=== PATIENT | male | born 1955 | race Native Hawaiian/Other Pacific Islander ===

== ENCOUNTER 2021-01-21 17:38 | Emergency (ER) | payer OTHER ==
[~2021-01-21] VITALS: Ht 188 cm; Wt 92.5 kg
[2021-01-21 17:38] VITALS: BP 127/72; TEMP 98.9
[2021-01-21 18:07] LABS: PLATELET COUNT 463 K/uL (142-355)
[2021-01-21 18:21] LABS: POTASSIUM 4.2 mmol/L (3.6-5.2)
[2021-01-21] MEDS ORDERED: FURO20TA67 PO (20:54)
[2021-01-21] MEDS ORDERED: AMLODIPINE BESYLATE PO (20:54)
[2021-01-21] MEDS ORDERED: ACID CONTROL MA20 MG PO (20:55)
[2021-01-21] MEDS ORDERED: CITALOPRAM40 M1 PO (20:55)
[2021-01-21] MEDS ORDERED: ELIQUIS5 MG PO (20:55)
[2021-01-21] MEDS ORDERED: METOPROLOL25 M1 PO (20:56)
[2021-01-21] MEDS ORDERED: VIMPAT100 MG PO (20:57)
[2021-01-21] MEDS ORDERED: SEROQUEL25 MG PO (20:57)
[2021-01-21] MEDS ORDERED: TYLENOL325 MG PO (20:58)
[2021-01-21] MEDS ORDERED: VALTOCO5 MG/0.1 M IM (20:59)
[2021-01-21] MEDS ORDERED: IPRAAER INH (21:00)
[2021-01-21] MEDS ORDERED: HYDR5TAB9 PO (21:00)
[2021-01-21] MEDS ORDERED: LORA0.5T17 PO (21:01)
[2021-01-21] MEDS ORDERED: ROWEEPRA XR750 MG PO (21:02)
== END 2021-01-21 18:58 | disposition still patient (30) ==
LOC: ED 17:38
PROVIDERS: Hospitalist
DX: R46.89 Other symptoms and signs involving appearance and behavior (principal); I10 Essential (primary) hypertension; Z11.52 Encounter for screening for COVID-19; Z04.6 Encounter for general psychiatric examination, requested by authority
CPT/HCPCS: 80053; 85027; 87635; 93005; 99283; U0003